=== PATIENT | female | born 1940 | race African-American/Black ===

== ENCOUNTER 2017-03-14 23:15 | Inpatient (IN) | payer OTHER ==
[~2017-03-14] VITALS: Ht 162.6 cm; Wt 65.5 kg
--- NOTE | ~2017-03-14 | HC ---
[facility] [place] [address] CONSULTATION Name: GRECIA COLON Room #: 202-P ADM IN M.R.#: [id number] Admission: 03/15/17 Attend Phys: Jarek Plata MD Discharge: Date of : 42 Report #: [id number] THIS REPORT FOR: //name// CC: JACIEL George HISTORY OF PRESENT ILLNESS: The patient is a 76-year-old female with dementia who was brought to the Emergency Room by her daughter. The history was obtained by the daughter with whom I was able to speak by telephone. The patient's daughter states that prior to bedtime she had fed her mother half a turkey sandwich and given her mother her medications. As she was wishing her mother krystina she turned and saw that her mother's eyes were fluttering and the patient's face and upper body appeared contorted, but the lower extremities seemed to be doing nothing. This lasted approximately 5 minutes. Afterwards, the patient seemed not to be breathing and so she initiated CPR. The patient was brought to the Emergency Room and the patient was admitted for further evaluation. In the Emergency Room, it was noted that the urinalysis demonstrated positive leukocyte esterase with a few white blood cells in the urine and the patient is now being treated for a urinary tract infection with a single dose of vancomycin and ceftriaxone 1 gram. The patient apparently has a history of multiple strokes and in the past 2 months has now become nonambulatory. She is on donepezil 10 mg at bedtime. The patient is not oriented to place or time, but she does continue to recognize family members. PAST MEDICAL HISTORY: Dementia, multiple strokes, diabetes, hyperlipidemia, iron deficiency anemia, vitamin D deficiency, hypertension, DVT. PAST SURGICAL HISTORY: Unremarkable. MEDICATIONS: At home, vitamin D 50,000 units weekly, Levemir 10 mg at bedtime, NovoLog 10 mg prior to meals, baclofen 15 mg t.i.d., Eliquis 5 mg b.i.d., Glucophage 1000 mg b.i.d., Lopressor 25 mg b.i.d., Lipitor 40 mg at bedtime, donepezil 10 mg at bedtime, quetiapine 25 mg at bedtime, furosemide 40 mg daily, potassium 20 mEq daily, Tylenol p.r.n., Colace 100 mg daily, ferrous sulfate 325 mg b.i.d., magnesium oxide 400 mg t.i.d., melatonin 300 mg at bedtime. ALLERGIES: None. PHYSICAL EXAMINATION: VITAL SIGNS: Temperature 36.4, pulse rate 89, respiratory rate 21, blood pressure 148/69, bedside pulse oximetry 99% on room air. NEUROLOGIC: Cranial nerves 2-12 are grossly intact. Motor exam demonstrates a right hemiparesis. Uyaaet-mp-tdup cannot be tested. Gait cannot be tested. Mentation, the patient was not oriented to place or time. [address] [address] CONSULTATION Name: GRECIA COLON Room #: 202-P [facility] M.R.#: [id number] Admission: 03/15/17 Attend Phys: Jarek Plata MD Discharge: Date of : 42 Report #: [id number] LABORATORY DATA: White blood cell count 8.6, hemoglobin 10, hematocrit 30, MCV 81.8, platelet count 315,000. Coagulation: INR 1.1. Urinalysis, trace protein, trace blood, leukocyte esterase 1+, white blood cell count 6-15, bacteria few, hyaline casts, few. Chemistry: Sodium 140, potassium 3.7, chloride 105, carbon dioxide 28, BUN 15, creatinine 0.6, glucose 113, calcium 8.8. IMAGING STUDIES: CT scan of the head demonstrates a focal area of infarction lateral to the posterior right caudate nucleus and moderate cerebral atrophy and diffuse encephalomalacia throughout both hemispheres. IMPRESSION AND PLAN: This patient has a history of stroke and dementia, so she is at risk for having a seizure. I spoke with the patient's daughter and her daughter is amenable to waiting for the results of the electroencephalogram. If the electroencephalogram shows an epileptogenic focus then an antiepileptic medication will be initiated. If there is no focal abnormality on the electroencephalogram then we may hold off on an anticonvulsant. I thank you for your kind referral on the patient and will continue to follow her with you. <ELECTRONICALLY SIGNED> By: Stacie George DO 03/16/17 0926 [id number] 0201 Stacie George DO /nt
--- NOTE | ~2017-03-14 | EKG ---
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 : 1940 Requested By: Princess Mills Order Number: [id number] MD: Og Steiner Measurements Intervals [place] Rate: 96 P: 72 [place]: 175 QRS: -14 QRSD: 82 T: 86 QT: 364 QTc: 460 Interpretive Statements Sinus rhythm Probable left atrial enlargement Anteroseptal infarct, old Compared to ECG 12/12/2016 18:20:32 Myocardial infarct finding now present Left ventricular hypertrophy no longer present Q waves no longer present Electronically Signed On 03-15-2017 20:22:06 CDT by Og Steiner [email or web address] <ELECTRONICALLY SIGNED> By: Og Steiner MD 03/15/172021 52 52 Og Steiner MD /EPI
[~2017-03-14 23:15] MED LIST: ARICEPT10 M1 PO; ATORVASTATIN CA40 MG PO; COLACE100 MG PO; ELIQUIS5 MG PO; GLUCOPHAGE1000 MG PO; IRON325 PO; KEFLEX500 MG PO; LASIX 40 MG TAB40 M2 PO; LEVEMIR SUBQ; LIORESAL 10 MG10 MG PO; LOPRESSOR25 PO; MAGOX 400400 MG PO; MELATONIN3 MG PO; NOVOLOG100 UNIT/1 SUBQ; POTASSIUM20 PO; SEROQUEL 25 MG25 M1 PO; TYLENOL325 MG PO; VITAMIN D 5050000 I1 PO
[2017-03-14 23:16] VITALS: BP 151/87
[2017-03-14 23:56] LABS: ABSOLUTE NEUTROPHILS 5.6 thou/uL (1.4-8.2); BASOPHILS 0.4 % (0.0-2.0); EOSINOPHILS 7.1 % (0.0-3.0); HEMATOCRIT 33.1 % (37.0-47.0); HEMOGLOBIN 10.8 gm/dL (12.0-15.0); MCH 26.8 pg (26.0-34.0); MCHC 32.5 g/dL (28.0-37.0); MCV 82.5 fL (80.0-100.0); MONOCYTES 6.4 % (1.0-8.0); PLATELET COUNT 337 thou/uL (150-400); POLYS 61.1 % (36.0-66.0); RBC 4.02 mil/uL (4.20-5.00); RDW 15.6 % (10.5-14.5); WBC 9.2 thou/uL (4.0-11.0)
[2017-03-14 23:59] LABS: CALCIUM 8.9 mg/dL (8.5-10.1); CREATININE 0.8 mg/dL (0.6-1.0); POTASSIUM 3.5 mmol/L (3.5-5.1)
[2017-03-15] LABS: MANUAL DIFF NO
[2017-03-15 00:08] LABS: INR 1.1
[2017-03-15 01:49] LABS: URINE BILIRUBIN NEGATIVE (Negative); URINE BLOOD TRACE (Negative); URINE COLOR YELLOW; URINE GLUCOSE-RANDOM* NEGATIVE (Negative); URINE KETONES NEGATIVE (Negative); URINE NITRITE NEGATIVE (Negative); URINE PROTEIN (DIPSTICK) TRACE (Negative); URINE UROBILINOGEN 0.2 E.U./dl (0.2-1.0)
[2017-03-15 01:50] VITALS: BP 136/69
[2017-03-15 01:57] LABS: HYALINE CASTS 0-3 Few /LPF (None Seen); SQUAMOUS 0-3 Few /LPF (0-3)
[2017-03-15 01:58] LABS: BACTERIA 1-9 Few /HPF (None Seen); CRYSTALS None Seen /LPF (None Seen); TRANSITIONAL EPITHEL CELL 0-3 Few /LPF (None Seen); URINE RBC 0-2 Rare /HPF (0-2); URINE WBC 6-15 Few /HPF (0-5)
[2017-03-15 02:12] VITALS: BP 142/76
[2017-03-15 06:47] LABS: MCH 27.3 pg (26.0-34.0); MCHC 33.4 g/dL (28.0-37.0); MCV 81.8 fL (80.0-100.0); RBC 3.66 mil/uL (4.20-5.00); RDW 15.4 % (10.5-14.5); WBC 8.6 thou/uL (4.0-11.0)
[2017-03-15 06:53] LABS: CALCIUM 8.8 mg/dL (8.5-10.1); CREATININE 0.6 mg/dL (0.6-1.0); POTASSIUM 3.7 mmol/L (3.5-5.1)
[2017-03-15 08:10] VITALS: BP 148/69
[2017-03-15 13:03] VITALS: BP 139/76
[2017-03-15 17:23] VITALS: BP 151/82
[2017-03-15 19:33] VITALS: BP 154/83
[2017-03-16 03:37] VITALS: BP 138/78
[2017-03-16 07:45] VITALS: BP 155/83
[2017-03-16 19:43] VITALS: BP 178/105
[2017-03-17 04:20] VITALS: BP 144/91
[2017-03-17 07:51] VITALS: BP 137/87
[2017-03-17 16:23] VITALS: BP 159/99
[2017-03-17 19:36] VITALS: BP 132/70
[2017-03-18 04:25] VITALS: BP 107/60
[2017-03-18 08:11] VITALS: BP 136/58
[2017-03-18] MEDS ORDERED: BACTRIM DS TAB1 EACH PO (11:00)
[2017-03-18] MEDS ORDERED: LEVETIRACETAM250 MG PO (11:00)
[2017-03-18] MEDS ORDERED: NOVOLOG100 UNIT/1 SUBQ (11:00)
[2017-03-18 19:10] VITALS: BP 147/70
[2017-03-19 08:00] VITALS: BP 126/62
[2017-03-19 15:22] VITALS: BP 127/59
[2017-03-19 20:00] VITALS: BP 150/75
[2017-03-20 05:20] VITALS: BP 143/78
[2017-03-20 07:10] VITALS: BP 149/71
[2017-03-20 16:15] VITALS: BP 141/83
[2017-03-20 20:10] VITALS: BP 140/79
[2017-03-21 04:45] VITALS: BP 129/68
[2017-03-21 08:00] VITALS: BP 149/72
[2017-03-21 17:05] VITALS: BP 175/82
[2017-03-21 20:00] VITALS: BP 175/86
[2017-03-22 04:00] VITALS: BP 148/80
[2017-03-22 07:18] VITALS: BP 154/79
[2017-03-22 16:27] VITALS: BP 148/86
[2017-03-22 20:10] VITALS: BP 132/68
[2017-03-23 04:10] VITALS: BP 127/65
[2017-03-23 08:00] VITALS: BP 163/80
[2017-03-23 16:36] VITALS: BP 163/80
[2017-03-23 19:22] VITALS: BP 125/67
[2017-03-23 19:24] VITALS: BP 163/80
== END 2017-03-23 21:08 | disposition home health service (06) | DRG 70 ==
LOC: ER 23:15 → EROBS 03-15 01:03 → 2N 03-15 01:03 → 3N 03-15 01:03 → 2N 03-15 01:52 → 3N 03-17 03:21
PROVIDERS: Emergency Medicine; Nurse Practitioner Family
DX: G93.40 Encephalopathy, unspecified (principal); E43 Unspecified severe protein-calorie malnutrition; N39.0 Urinary tract infection, site not specified; I69.351 Hemiplegia and hemiparesis following cerebral infarction affecting right dominant side; I10 Essential (primary) hypertension; G40.909 Epilepsy, unspecified, not intractable, without status epilepticus; E78.5 Hyperlipidemia, unspecified; R19.7 Diarrhea, unspecified; G30.9 Alzheimer's disease, unspecified; F02.80 Dementia in other diseases classified elsewhere, unspecified severity, without behavioral disturbance, psychotic disturbance, mood disturbance, and anxiety; Z68.24 Body mass index [BMI] 24.0-24.9, adult; Z79.01 Long term (current) use of anticoagulants; Z86.718 Personal history of other venous thrombosis and embolism; Z82.49 Family history of ischemic heart disease and other diseases of the circulatory system; Z82.3 Family history of stroke; Z79.899 Other long term (current) drug therapy
CPT/HCPCS: 10081; 10096

== ENCOUNTER 2017-04-17 06:05 | Inpatient (IN) | payer OTHER ==
[~2017-04-17] VITALS: Ht 162.6 cm; Wt 58.6 kg
--- NOTE | ~2017-04-17 | EKG ---
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 04/19/17 1303 0645 0645 Bernardo Dowell MD, [facility] /EPI
--- NOTE | ~2017-04-17 | EKG ---
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 : 1940 Requested By: Mikey Salas Order Number: [id number] MD: Bernardo Dowell Measurements Intervals [place] Rate: 131 P: 52 [place]: 156 QRS: 0 QRSD: 79 T: 114 QT: 301 QTc: 445 Interpretive Statements Sinus tachycardia Probable left atrial enlargement Anterior infarct, old Borderline repolarization abnormality Compared to ECG 03/14/2017 23:53:11 [address] change in the ST and T-wave segments Electronically Signed On 04-20-2017 9:16:52 CDT by Bernardo Dowell [email or web address] <ELECTRONICALLY SIGNED> By: Bernardo Dowell MD, [facility] 04/20/17 0916 12 12 Bernardo Dowell MD, [facility] /EPI
[~2017-04-17 06:05] MED LIST changes: +BACTRIM DS TAB1 EACH PO; +LEVETIRACETAM250 MG PO
[2017-04-17 06:06] VITALS: BP 142/85
[2017-04-17 06:45] LABS: ABSOLUTE NEUTROPHILS 7.2 thou/uL (1.4-8.2); BASOPHILS 0.4 % (0.0-2.0); EOSINOPHILS 0.8 % (0.0-3.0); HEMOGLOBIN 11.3 gm/dL (12.0-15.0); LYMPHOCYTES 15.1 % (24.0-44.0); MCH 27.3 pg (26.0-34.0); MCHC 33.2 g/dL (28.0-37.0); MCV 82.3 fL (80.0-100.0); MONOCYTES 4.8 % (1.0-8.0); PLATELET COUNT 327 thou/uL (150-400); POLYS 78.9 % (36.0-66.0); RBC 4.13 mil/uL (4.20-5.00); RDW 16.5 % (10.5-14.5); WBC 9.1 thou/uL (4.0-11.0)
[2017-04-17 07:08] LABS: ANION GAP 8 mmol/L (7-16); BUN 22 mg/dL (7-18); CALCIUM 9.3 mg/dL (8.5-10.1); CHLORIDE 102 mmol/L (98-107); CO2 28 mmol/L (21-32); GLUCOSE 172 mg/dL (74-106); POTASSIUM 4.7 mmol/L (3.5-5.1); SODIUM 138 mmol/L (136-145)
[2017-04-17 07:15] LABS: ALBUMIN 2.8 g/dL (3.4-5.0); ALKALINE PHOSPHATASE 145 U/L (46-116); SGOT 31 U/L (15-37); SGPT 24 U/L (30-65); TOTAL BILIRUBIN 0.3 mg/dL (<0.1-1.0); TOTAL PROTEIN 8.1 g/dL (6.4-8.2); TROPONIN-I < 0.04 ng/mL (<0.04-0.07)
[2017-04-17 07:18] LABS: MANUAL DIFF NO
[2017-04-17 08:39] LABS: URINE BILIRUBIN NEGATIVE (Negative); URINE BLOOD TRACE (Negative); URINE COLOR YELLOW; URINE GLUCOSE-RANDOM* NEGATIVE (Negative); URINE KETONES TRACE (Negative); URINE LEUKOCYTES-REFLEX 1+ (Negative); URINE PROTEIN (DIPSTICK) TRACE (Negative); URINE SPECIFIC GRAVITY 1.015 (1.003-1.035); URINE UROBILINOGEN 0.2 E.U./dl (0.2-1.0)
[2017-04-17 08:47] LABS: SQUAMOUS 0-3 Few /LPF (0-3)
[2017-04-17 08:48] LABS: CASTS None Seen /LPF (None Seen); CRYSTALS None Seen /LPF (None Seen); URINE RBC 0-2 Rare /HPF (0-2); URINE WBC-REFLEX 6-15 Few /HPF (0-5)
[2017-04-17 11:31] VITALS: BP 137/70
[2017-04-17 12:10] VITALS: BP 137/70
[2017-04-17 15:05] VITALS: BP 190/94
[2017-04-17 19:48] VITALS: BP 155/81
[2017-04-18 04:00] VITALS: BP 155/84
[2017-04-18 04:57] LABS: ABSOLUTE NEUTROPHILS 4.1 thou/uL (1.4-8.2); BASOPHILS 0.4 % (0.0-2.0); EOSINOPHILS 1.7 % (0.0-3.0); HEMATOCRIT 30.1 % (37.0-47.0); LYMPHOCYTES 28.5 % (24.0-44.0); MCH 27.3 pg (26.0-34.0); MCHC 33.4 g/dL (28.0-37.0); MCV 81.9 fL (80.0-100.0); MONOCYTES 8.1 % (1.0-8.0); PLATELET COUNT 293 thou/uL (150-400); POLYS 61.3 % (36.0-66.0); RBC 3.67 mil/uL (4.20-5.00); RDW 16.2 % (10.5-14.5); WBC 6.6 thou/uL (4.0-11.0)
[2017-04-18 05:00] LABS: MANUAL DIFF NO
[2017-04-18 05:05] LABS: CALCIUM 8.1 mg/dL (8.5-10.1); CREATININE 0.8 mg/dL (0.6-1.0); POTASSIUM 3.5 mmol/L (3.5-5.1)
[2017-04-18 07:13] VITALS: BP 148/80
[2017-04-18 15:08] VITALS: BP 156/83
[2017-04-18 18:32] VITALS: BP 156/80
[2017-04-18 20:00] VITALS: BP 128/66
[2017-04-19 04:00] VITALS: BP 137/74
[2017-04-19 04:51] LABS: HEMATOCRIT 31.2 % (37.0-47.0); HEMOGLOBIN 10.5 gm/dL (12.0-15.0); MCH 27.2 pg (26.0-34.0); MCHC 33.5 g/dL (28.0-37.0); MCV 81.2 fL (80.0-100.0); RBC 3.84 mil/uL (4.20-5.00); RDW 16.4 % (10.5-14.5); WBC 6.4 thou/uL (4.0-11.0)
[2017-04-19 04:55] LABS: ALBUMIN 2.3 g/dL (3.4-5.0); CALCIUM 8.1 mg/dL (8.5-10.1); CREATININE 0.7 mg/dL (0.6-1.0); TOTAL BILIRUBIN 0.2 mg/dL (<0.1-1.0)
[2017-04-19 05:17] LABS: MAGNESIUM 0.8 mg/dL (1.8-2.4)
[2017-04-19 07:34] VITALS: BP 173/92
[2017-04-19 16:52] VITALS: BP 163/84
[2017-04-19 19:07] VITALS: BP 172/90
[2017-04-19 20:10] VITALS: BP 164/92
[2017-04-19 23:21] VITALS: BP 167/92
[2017-04-20 02:35] LABS: HEMATOCRIT 32.5 % (37.0-47.0); HEMOGLOBIN 10.9 gm/dL (12.0-15.0); MCH 27.1 pg (26.0-34.0); MCHC 33.5 g/dL (28.0-37.0); MCV 81.1 fL (80.0-100.0); RDW 15.8 % (10.5-14.5); WBC 6.2 thou/uL (4.0-11.0)
[2017-04-20 02:42] LABS: CALCIUM 8.7 mg/dL (8.5-10.1); CREATININE 0.5 mg/dL (0.6-1.0); MAGNESIUM 1.3 mg/dL (1.8-2.4); POTASSIUM 3.5 mmol/L (3.5-5.1)
[2017-04-20 04:57] VITALS: BP 165/74
[2017-04-20 07:20] VITALS: BP 144/91
[2017-04-20 20:20] VITALS: BP 169/97
[2017-04-21] VITALS (8 sets, daily range): BP systolic 147–171; BP diastolic 84–96
[2017-04-21] MEDS ORDERED: MACRODANTIN100 MG PO (09:40)
== END 2017-04-21 21:10 | disposition home health service (06) | DRG 871 ==
LOC: ER 06:05 → 4E 09:59 → EROBS 09:59 → 4E 10:55
PROVIDERS: Emergency Medicine; Family Medicine; Nurse Practitioner Family; Registered Nurse
DX: A41.9 Sepsis, unspecified organism (principal); E43 Unspecified severe protein-calorie malnutrition; N39.0 Urinary tract infection, site not specified; B95.2 Enterococcus as the cause of diseases classified elsewhere; G40.909 Epilepsy, unspecified, not intractable, without status epilepticus; E11.9 Type 2 diabetes mellitus without complications; I10 Essential (primary) hypertension; E78.00 Pure hypercholesterolemia, unspecified; F03.90 Unspecified dementia, unspecified severity, without behavioral disturbance, psychotic disturbance, mood disturbance, and anxiety; Z68.22 Body mass index [BMI] 22.0-22.9, adult; Z79.01 Long term (current) use of anticoagulants; Z79.4 Long term (current) use of insulin; Z79.84 Long term (current) use of oral hypoglycemic drugs; Z79.899 Other long term (current) drug therapy; Z86.73 Personal history of transient ischemic attack (TIA), and cerebral infarction without residual deficits; Z87.891 Personal history of nicotine dependence; Z82.49 Family history of ischemic heart disease and other diseases of the circulatory system; Z82.3 Family history of stroke
CPT/HCPCS: 10183